=== PATIENT | female | born 1930 | race Caucasian/White ===

== ENCOUNTER → 2016-08-21 | Outpatient (CLI) | payer MEDICARE, BC ==
--- NOTE | 2016-08-21 15:04 | NM ---
EXAMINATION TYPE: NM bone scan whole body DATE OF EXAM: 08/21/2016 3:00 PM COMPARISON: NONE HISTORY: Lower back pain Delayed whole-body scanning was performed following the injection of 26.1 mCi Tc 99m MDP. Images acq uired 3 hours post injection. FINDINGS: Abnormal uptake involving the feet, knees, wrists, and shoulders typical of arthritic change. There is linear abnormal uptake at the approximate level of L2 and L3 and more focal uptake at the le justen of L4 on the right. IMPRESSION: Nonspecific uptake within the lumbar spine. Linear morphology suggests possible compression fractures . Recommend x-ray correlation.
== END | disposition home or self-care (01) ==
LOC: RADNMMAIN 11:13
PROVIDERS: ATTEND Physical Medicine & Rehabilitation
DX: M48.06 Spinal stenosis, lumbar region (principal); M43.16 Spondylolisthesis, lumbar region; M47.896 Other spondylosis, lumbar region; N28.9 Disorder of kidney and ureter, unspecified; Z87.11 Personal history of peptic ulcer disease
CPT/HCPCS: 78306; A9503

== ENCOUNTER 2016-10-05 06:48 | Day surgery (SDC) | payer MEDICARE, BC ==
[2016-10-05] MEDS ORDERED: MIDAZOLAM 2 MG/2 ML VIAL IV PRN (07:27)
[2016-10-05] MEDS ORDERED: DEXAMETHASONE SOD PHOSPHATE 10 MG/ML 1 ML VIAL IV ONE (07:27)
[2016-10-05] MEDS ORDERED: ONDANSETRON 4 MG/2 ML VIAL IVP ONE (07:27)
[2016-10-05] MEDS ORDERED: LIDOCAINE 1% 20 ML VIAL (10MG/ML) FOR IV START INTRADERMA PRN (07:27)
[2016-10-05] MEDS ORDERED: SCOPOLAMINE 1.5MG/72HR PATCH TRANSDERM ONE (07:27)
[2016-10-05] MEDS: LACTATED RINGERS 1,000 ML IV SCH (07:45)
[2016-10-05] MEDS ORDERED: LIDOCAINE 1% 20 ML VIAL (10MG/ML) FOR IV START INTRADERMA ONE (07:45)
[2016-10-05] MEDS ORDERED: PROPOFOL 10 MG/ML 20 ML VIAL IV ONE (08:55)
[2016-10-05] MEDS ORDERED: GLYCOPYRROLATE 0.2 MG/ML 2 ML VIAL ONE (08:55)
[2016-10-05] MEDS ORDERED: SUCCINYLCHOLINE CHLORIDE 100 MG/5 ML SYR IV ONE (08:55)
[2016-10-05] MEDS ORDERED: LIDOCAINE 1% INJ 10MG/ML (20 ML MDV) ONE (08:55)
[2016-10-05] MEDS ORDERED: MIDAZOLAM 2 MG/2 ML VIAL ONE (08:55)
[2016-10-05] MEDS ORDERED: PHENYLEPHRINE-0.9% NACL SYG 1 MG/10 ML SYRINGE ONE (08:55)
[2016-10-05] MEDS ORDERED: fentaNYL (PF) 50 MCG/ML 2 ML AMP ONE (08:55)
[2016-10-05] MEDS ORDERED: ceFAZolin 2 GM in SODIUM CHLORIDE 0.9% 100 ML IVPB ONE (08:56)
[2016-10-05] MEDS ORDERED: LIDOCAINE 0.5%-EPI 1:200,000 50 ML VIAL SQ ONE (09:25)
[2016-10-05] MEDS ORDERED: IOHEXOL 180 MG/ML 1 ML ML MISCELLANE ONE (09:26)
--- NOTE | 2016-10-05 10:19 | FL ---
EXAMINATION TYPE: FL guidance operating room DATE OF EXAM: 10/05/2016 10:15 AM HISTORY: Flouroscopy time 59 seconds of fluoroscopy provided. IMPRESSION: 1. Fluoroscopy time.
[2016-10-05] MEDS: HYDROmorphone 1 MG/ML 1 ML SYRINGE IVP PRN ×3 (10:20→12:09)
--- NOTE | 2016-10-05 10:20 | XR ---
EXAM TYPE: LUMBAR SPINE X RAY SERIES COMPARISON: NONE HISTORY: Kyphoplasty TECHNIQUE: 2 views are submitted. FINDINGS: Metallic instruments are seen overlying 2 vertebral segments. IMPRESSION: 1. Intraoperative localization.
[2016-10-05] MEDS ORDERED: KETOROLAC 30 MG/ML 1 ML VIAL IVP ONE (12:07)
[2016-10-05] MEDS ORDERED: HYDROmorphone 1 MG/ML 1 ML SYRINGE IVP PRN (12:25)
[2016-10-05] MEDS ORDERED: BENZOCAINE/MENTHOL LOZENG 1 EACH LOZENGE MUCOUS MEM PRN (12:25)
[2016-10-05] MEDS ORDERED: IBUPROFEN 600 MG TAB PO PRN (12:26)
[2016-10-05] MEDS ORDERED: TRIMETHOBENZAMIDE 100 MG/ML 2 ML VIAL IM PRN (12:26)
--- NOTE | 2016-10-05 12:36 | P.OP ---
Date of Procedure: 10/05/16 Preoperative Diagnosis: L2 and L3 compression fractures failed conservative treatment Postoperative Diagnosis: same Procedure(s) Performed: L2 and L3 vertebal body bipsies L2 and L3 kyphoplasty use of fouroscopic guidance Implants: bone cement Anesthesia: NIKITA Surgeon: Jonah Bell Estimated Blood Loss (ml): 10 Pathology: other (L2 and L3 vertebral body bx to pathology) Condition: stable Disposition: PACU
[2016-10-05 12:59] VITALS: BMI 26.6
[2016-10-05] MEDS: HYDROcodone/APAP 5-325MG 1 EACH TAB PO PRN ×4 (13:10→22:16)
[2016-10-05] MEDS: SODIUM CHLORIDE 0.9% 1,000 ML IV SCH (13:17)
[2016-10-05] MEDS: ceFAZolin 2 GM in SODIUM CHLORIDE 0.9% 100 ML IVPB SCH ×2 (16:48→23:27)
[2016-10-06] MEDS: SODIUM CHLORIDE 0.9% 1,000 ML IV SCH ×2 (05:08→05:16)
[2016-10-06] MEDS: HYDROcodone/APAP 5-325MG 1 EACH TAB PO PRN ×3 (05:13→14:24)
[2016-10-06] MEDS: LACTATED RINGERS 1,000 ML IV SCH (08:23)
[2016-10-06] MEDS: LISINOPRIL 20 MG TAB PO SCH (08:23)
--- NOTE | 2016-10-06 08:47 | P.PN ---
Progress Note - Text Orthopedic Spine Patient is a pleasant 85-year-old female who is seen at the bedside following kyphoplasty with biopsy L2 and L3 performed yesterday. Patient states she is unsure how well she is doing postsurgically. She continues to have some pain at the surgical site. She has been able to ambulating to the restroom. She continues to have muscle spasms of the lumbar spine. She states is when she continues to have some difficulty with bowel movements. She states she feels pressure has had difficulty with bowel movements. She states she is also been experiencing bright red blood in her stool since June 2016. She states she does have a history of hemorrhoids but has not recently had any workup. Currently does not complain of nausea, vomiting, fever, or chills. Patient states pain has been adequately controlled. Patient is eating and voiding freely without difficulty. Physical Exam Laminectomy/Discectomy: Status post surgical day number 1 Patient is awake, alert, and oriented 3 Vital signs stable Good chest excursion with deep inspiration and expiration Abdomen soft nontender Dorsiflexion, plantarflexion, and extensor hallucis longus positive sustained bilaterally No signs or symptoms of DVT; no calf pain Dressing is clean, dry, and intact; no erythema, purulence, or signs of infection Assessment: Kyphoplasty and biopsy L2 and L3 Low back pain Difficulty with bowel movements Blood in stool Plan: 1. Ambulate as tolerated; work with Physical Therapy 2. Continue Pain control with oral medications 3. Medical management can continue to manage patient for patient's other medical issues 4. We will plan for consultation with Dr. Fournier in GI for further evaluation for difficulty bowel movements and blood in her stool; she will plan to have have further evaluation today 5. We will continue to follow the patient closely; if she is able to increase mobility today and following evaluation by GI, we will tentatively plan for discharge home tomorrow, 10/07/2016 6. Patient can follow-up with Charanjit Jha PA-C or Dr. Nino Bell at [facility] in 2-3 weeks following discharge
[2016-10-06] MEDS ORDERED: HYDROCORTISONE SUPPOSITORY 25 MG SUPP RECTAL STA (09:23)
--- NOTE | 2016-10-06 09:37 | P.CONS ---
History of Present Illness - Reason for Consult Consult date: 10/06/16 rectal bleeding Requesting physician: Jonah Bell - History of Present Illness 85-year-old female with a history of iron deficiency anemia and internal hemorrhoids status post kyphoplasty for lumbar compression fractures. Consultation requested for intermittent rectal bleeding 3 months. She underwent EGD colonoscopy evaluation as part of iron deficiency anemia workup in September [address] Iniguez. Upper endoscopy revealed a 1 cm nonbleeding pyloric channel ulcer. Colonoscopy was within normal limits, internal hemorrhoid, with no evidence of colorectal neoplasia or colitis. She was advised PPI therapy and iron supplementation. For the past 3 months she's had a scant amount of red blood on toilet tissue when wiping which she thinks is hemorrhoidal in nature. Denies weight loss, gross hematochezia, melena, epigastric pain, or hematemesis. She stopped taking PPI and iron supplementation. Review of Systems Constitutional: Denies fever, chills, sweats, weight gain, or loss. HEENT: Negative for migraines, blurred vision or loss, earaches, drainage, tinnitus, oral mucosal lesions, dysphagia, or odynophagia. CARDIAC: Hypertension. Negative for chest pain, arrhythmias, or palpitation. RESPIRATORY: Negative for shortness of breath, hemoptysis, cough, or sputum production. GI: See HPI for pertinent findings. : Negative for hematuria, urgency, frequency, polyuria, or dysuria. GYNc: Denies possibility of . Negative vaginal discharge. MUSCULOSKELETAL: Chronic back pain lumbar compression fractures.. NEUROLOGIC: Negative for stroke or TIA. ENDOCRINE: Negative for thyroid problems. SKIN: Negative for rash or itching. PSYCHIATRIC: Depression. 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 History of Any Multi-Drug Resistant Organisms: None Reported Past Surgical History: Orthopedic Surgery, Tonsillectomy, Tubal Ligation Additional Past Surgical History / Comment(s): KNEE SCOPE; SURG FOR FX LEFT WRIST; HEMORRHOIDECTOMY Past Anesthesia/Blood Transfusion Reactions: No Reported Reaction, Blood Transfusion Reaction, Motion Sickness Past Psychological History: Depression Smoking Status: Former smoker Past Alcohol Use History: None Reported Past Drug Use History: None Reported Medications and Allergies Home Medications Medication Instructions Recorded Confirmed Type HYDROcodone/APAP 5-325MG [[place] 1 tab PO Q8HR 10/05/16 10/05/16 History 5-325] Lisinopril [Zestril] 20 mg PO DAILY 10/05/16 10/05/16 History Pill For Depression 10/05/16 History Allergies Allergy/AdvReac Type Severity Reaction Status Date / Time Penicillins Allergy Unknown Unknown Verified 10/04/16 19:33 Sulfa (Sulfonamide Allergy Unknown Unknown Verified 10/04/16 19:32 Antibiotics) sulfamethoxazole AdvReac Nausea Verified 10/05/16 07:55 [From Bactrim] trimethoprim [From Bactrim] AdvReac Nausea Verified 10/05/16 07:55 Physical Exam Vitals: Vital Signs Temp Pulse Pulse Pulse Resp BP BP 10/06/16 08:00 108 H 76 16 10/06/16 07:43 97.4 F L 108 H 16 134/68 10/05/16 22:25 98.7 F 95 18 116/68 10/05/16 17:43 76 16 110/61 10/05/16 16:00 12 10/05/16 15:16 12 10/05/16 15:13 97 F L 82 12 91/53 10/05/16 13:43 97 F L 103 H 12 138/81 10/05/16 13:19 10/05/16 13:15 97.7 F 98 18 144/75 10/05/16 12:15 92 18 124/59 10/05/16 11:45 95 16 126/61 10/05/16 11:30 85 18 125/58 10/05/16 11:18 94 16 130/61 10/05/16 11:03 94 18 128/61 10/05/16 10:45 91 18 130/58 10/05/16 10:30 97 18 145/67 10/05/16 10:16 102 H 18 152/69 10/05/16 10:00 98.2 F 111 H 16 165/74 Pulse Ox 10/06/16 08:00 10/06/16 07:43 92 L 10/05/16 22:25 94 L 10/05/16 17:43 97 10/05/16 16:00 10/05/16 15:16 10/05/16 15:13 97 10/05/16 13:43 98 10/05/16 13:19 92 L 10/05/16 13:15 88 L 10/05/16 12:15 99 10/05/16 11:45 100 10/05/16 11:30 100 10/05/16 11:18 100 10/05/16 11:03 99 10/05/16 10:45 98 10/05/16 10:30 95 10/05/16 10:16 98 10/05/16 10:00 100 Intake and Output 10/05/16 10/06/16 10/06/16 22:59 06:59 14:59 Intake Total 600 Balance 600 Intake: IV 600 Sodium Chloride 0.9% 1, 600 000 ml @ 75 mls/hr IV . [id number] Rx#:[id number] Other: Voiding Method Toilet Toilet Toilet # Voids 1 2 1 Weight 63.957 kg Patient Weight 10/07/16 06:59 Weight 63.957 kg General appearance: The patient is alert, oriented, in no acute distress. HET: Head is normocephalic and atraumatic. Pupils are equal and reactive. Oropharynx is clear without lesions. Neck: Supple without lymphadenopathy. Trachea midline. Heart: S1 S2. Regular rate and rhythm. Lungs: No crackles or wheezes are heard. Abdomen: Soft, nontender, nondistended with bowel sounds. No peritoneal signs. No palpable organomegaly or masses. Extremities: Normal skin color and turgor. No cyanosis, rash, ulceration, clubbing, or edema. Radial and pedal pulses are 2/4 bilaterally. Lumbar dressing was scant serosanguineous drainage. Neurological: No focal deficits. Strength and sensation are grossly intact. Rectal: Palpable internal hemorrhoid with scant pink tinged blood on finger. No palpable masses. Nonthrombosed external tag. Assessment and Plan (1) Rectal bleeding Narrative/Plan: Secondary to suspected internal hemorrhoid colonoscopy 2013 with findings of internal hemorrhoids Status: Acute (2) S/P kyphoplasty Status: Acute (3) Iron deficiency anemia Narrative/Plan: History of iron deficiency anemia Status: Chronic Plan: 1. Local hemorrhoidal care. Anusol-HC 25 mg suppository QHS; prescription provided. 2. We'll obtain CBC and iron studies. If evidence of iron deficiency will provide ferrous sulfate supplementation. 3. Stool softeners advised. 4. Endoscopic workup not planned at this time. Discharge per orthopedics possibly tomorrow. Return to GI office in 1-2 weeks for reevaluation. Thank you for this kind referral and the opportunity to participate in the care of your patient. This consultation was discussed with Dr. Lim. The impression and plan of care have been directed as dictated.
[2016-10-06 10:08] LABS: Basophils % (A) 1 %; CH 24.9; CHCM 29.7; Eosinophils # (A) 0.2 k/uL (0-0.7); Eosinophils % (A) 3 %; HCT 34.5 % (34.0-46.0); HDW 2.83; HGB 10.2 gm/dL (11.4-16.0); Hypochromasia Marked; Luc # (Auto) 0.16; Luc % (Auto) 3; Lymphocytes # (A) 1.8 k/uL (1.0-4.8); Lymphocytes % (A) 28 %; MCH 24.9 pg (25.0-35.0); MCHC 29.6 g/dL (31.0-37.0); MCV 84.1 fL (80.0-100.0); Monocytes # (A) 0.3 k/uL (0-1.0); Monocytes % (A) 5 %; Neutrophils # (A) 3.9 k/uL (1.3-7.7); Neutrophils % (A) 62 %; RDW 14.9 % (11.5-15.5); WBC 6.4 k/uL (3.8-10.6); WBC (Perox) 6.64
[2016-10-06 10:56] LABS: % Iron Saturation 4.8 % (20-50)
[2016-10-06] MEDS: DIAZEPAM 5 MG TAB PO PRN ×3 (10:56→22:17)
[2016-10-06] MEDS ORDERED: FERROUS SULFATE 325 MG TAB PO STA (12:54)
[2016-10-06] MEDS ORDERED: HYDROCORTISONE SUPPOSITORY 25 MG SUPP RECTAL SCH (21:00)
--- NOTE | 2016-10-06 22:11 | CONS ---
DATE OF CONSULTATION: 10/06/2016 REASON FOR CONSULTATION: Medical management requested by Dr. Bell. CONSULTATION: This is a pleasant 85-year-old patient of Dr. Patricia. Patient underwent surgery by Dr. Bell yesterday. She is known to have L2-L3 compression fracture followed by L2-L3 kyphoplasty. Patient has a drain in place. Patient did tolerate some diet. No nausea or vomiting. Patient pretty much has been in bed. The patient's chronic stable medical conditions include GERD, hypertension, osteoarthritis, depression, urinary urge incontinence. Prior to surgery patient was getting ( ) pain with spasms in the back and the buttock area. REVIEW OF SYSTEMS: CONSTITUTIONAL: Tired. HEENT: None. RESPIRATORY: None. CARDIOVASCULAR: None. GASTROINTESTINAL: None. GENITOURINARY: Urge incontinence. DERMATOLOGICAL: None. HEMATOLOGICAL: None. LYMPHATIC: None. PSYCHIATRY: History of depression. NEUROLOGICAL: None. MUSCULOSKELETAL: As above. PAST MEDICAL HISTORY: 1. GERD. 2. Hypertension. 3. Osteoarthritis. 4. L2-L3 compression fracture. 5. Depression. 6. Urinary urge incontinence. PAST SURGICAL HISTORY: 1. Tonsillectomy. 2. Tubal ligation. 3. Surgery on the left wrist. 4. Hemorrhoidectomy. SOCIAL HISTORY: Patient lives by herself. Did smoke in the past. No alcohol. FAMILY HISTORY: Reviewed; noncontributory to presentation. HOME MEDICATIONS: 1. Prozac 20 mg a day. 2. Red Bud 5 one tablet q.8. 3. Zestril 20 mg a day. 4. Anusol-HC 25 mg at bedtime. ALLERGIES: 1. PENICILLIN. 2. SULFA. 3. BACTRIM. On examination, temperature 97.4, pulse 98, respiration 16, blood pressure 124/65, pulse ox 94%. GENERAL APPEARANCE: Average build. Lying in bed. Tired-appearing. EYES: Pupils equal. Conjunctivae normal. HEENT: Oral cavity normal. NECK: JVD not raised. Mass not palpable. RESPIRATORY: Effort normal. LUNGS: Fair air entry. CARDIOVASCULAR: First and second sounds normal. No edema. ABDOMEN: Soft, nontender. Liver and spleen not palpable. LYMPHATIC: No lymph node palpable in neck or axillae. PSYCHIATRY: Alert and oriented ( ) MUSCULOSKELETAL: Patient has a drain in the lower back. NEUROLOGICAL: Patient is able to lift both the lower extremities. INVESTIGATIONS: White count 6.4. Hemoglobin 10.2. ASSESSMENT: 1. L2-L3 kyphoplasty for L2-L3 compression fracture. 2. Gastroesophageal reflux disease. 3. Essential hypertension. 4. Primary osteoarthritis in multiple joints. 5. Depression not otherwise specified. 6. Chronic urinary urge incontinence. PLAN: I told the nurse to check patient's home medications once it is clarified they can be resumed. Blood pressure medications will be resumed provided the blood pressure is above 130. Pain control is in place. Venodyne boots are in place. Care was discussed in detail with the patient. Thank you, Dr. Bell.
[2016-10-06] MEDS: FLUoxetine HCL 20 MG CAP PO SCH (22:17)
[2016-10-06 22:42] VITALS: RESP 18
[2016-10-07] MEDS: HYDROcodone/APAP 5-325MG 1 EACH TAB PO PRN ×2 (01:47→08:14)
[2016-10-07] MEDS: SODIUM CHLORIDE 0.9% 1,000 ML IV SCH (06:24)
[2016-10-07] MEDS: FLUoxetine HCL 20 MG CAP PO SCH (08:15)
[2016-10-07] MEDS: LISINOPRIL 20 MG TAB PO SCH (08:15)
[2016-10-07 08:31] VITALS: BP 128/61; PULSE 91; TEMP 98.2
== END 2016-10-07 10:35 | disposition home or self-care (01) ==
LOC: OR 06:48 → 5MS5E 10:00 → OR 10-07 10:35
PROVIDERS: ATTEND Orthopaedic Surgery Orthopaedic Surgery of the Spine
DX: S32.020A Wedge compression fracture of second lumbar vertebra, initial encounter for closed fracture (principal); S32.030A Wedge compression fracture of third lumbar vertebra, initial encounter for closed fracture; M47.817 Spondylosis without myelopathy or radiculopathy, lumbosacral region; M51.36 Other intervertebral disc degeneration, lumbar region; M51.26 Other intervertebral disc displacement, lumbar region; M43.17 Spondylolisthesis, lumbosacral region; N39.41 Urge incontinence; M19.91 Primary osteoarthritis, unspecified site; M19.90 Unspecified osteoarthritis, unspecified site; K21.9 Gastro-esophageal reflux disease without esophagitis; F32.9 Major depressive disorder, single episode, unspecified; I10 Essential (primary) hypertension; K64.8 Other hemorrhoids; D50.9 Iron deficiency anemia, unspecified; M62.830 Muscle spasm of back; Z79.891 Long term (current) use of opiate analgesic; Z79.899 Other long term (current) drug therapy; Z88.0 Allergy status to penicillin; Z88.2 Allergy status to sulfonamides; Z87.891 Personal history of nicotine dependence
CPT/HCPCS: 22515; 22514; 97161; 82728; 83540; 83550; 85025; 88307; 88311; 72100; J2250; Q9965; J0690; J2405; J2001; J3010; J1170; J2370; J0330; J2704

== ENCOUNTER → 2017-11-14 | Outpatient (CLI) | payer MEDICARE, BC ==
[~2017-11-14] MED LIST: DENOSUMAB 60 MG/ML 1 ML SYRINGE SQ NR
[2017-11-14 13:46] VITALS: BP 159/94; PULSE 85; RESP 16; TEMP 98.2
== END | disposition home or self-care (01) ==
LOC: PROCWHC3 13:32
PROVIDERS: ATTEND Family Medicine
DX: M81.0 Age-related osteoporosis without current pathological fracture (principal)
CPT/HCPCS: 96372

== ENCOUNTER → 2018-11-14 | Outpatient (CLI) | payer MEDICARE, BC ==
[2018-11-14 16:53] LABS: Basophils % (A) 0 %; Eosinophils # (A) 0.2 k/uL (0-0.7); Eosinophils % (A) 2 %; HCT 29.2 % (34.0-46.0); HGB 8.8 gm/dL (11.4-16.0); Hypochromasia Marked; Lymphocytes # (A) 2.2 k/uL (1.0-4.8); Lymphocytes % (A) 22 %; MCH 23.7 pg (25.0-35.0); MCHC 30.3 g/dL (31.0-37.0); MCV 78.3 fL (80.0-100.0); Mean Platelet Volume 7.6; Monocytes # (A) 0.6 k/uL (0-1.0); Monocytes % (A) 6 %; Neutrophils # (A) 6.7 k/uL (1.3-7.7); Neutrophils % (A) 67 %; Platelet Count 362 k/uL (150-450); RBC 3.73 m/uL (3.80-5.40); RDW 15.1 % (11.5-15.5)
[2018-11-15 00:57] LABS: Iron Saturation 2.89 (12.00-45.00)
== END ==
LOC: LABWHC1 15:57
PROVIDERS: ATTEND Family Medicine
DX: D50.9 Iron deficiency anemia, unspecified (principal)
CPT/HCPCS: 36415; 82728; 83540; 83550; 85025

== ENCOUNTER 2018-11-19 14:34 | Observation (INO) | payer MEDICARE, BC ==
--- NOTE | 2018-11-19 15:33 | ED ---
General Adult HPI - General Chief complaint: Recheck/Abnormal Lab/Rx Stated complaint: Low hemoglobin Time Seen by Provider: 11/19/18 15:00 Source: patient Mode of arrival: wheelchair Limitations: no limitations - History of Present Illness Initial comments: Dictation was produced using [employer] dictation software. please excuse any gram matical, word or spelling errors. Chief Complaint: 88-year-old female with past medical history of chronic anemia presents with abnormal outpatient lab. History of Present Illness: His 88-year-old female with multiple comorbidities. She was told to come to the emergency department yesterday after she had an abnormal outpatient laboratory result. She was told that she had a low hemog lobin. His labs were drawn 4 days ago by her primary care physician and office manager receptionist. Patient states that she has been having difficulty with anemia for past several months. She takes [id number] iron supplementation. She has no other complaints at this time. The ROS documented in this emergency department record has been reviewed and confirmed by me. Those systems with pertinent positive or negative responses have been documented in the HPI. All other systems are other negative and/or noncontributory. PHYSICAL EXAM: General Impression: Alert and oriented x3, not in acute distress HEENT: Normocephalic atraumatic, extra-ocular movements intact, pupils equal and reactive to light bilaterally, mucous membranes moist. Cardiovascular: Heart regular rate and rhythm, S1&S2 audible, no murmurs, rubs or gallops Chest: Lungs clear to auscultation bilaterally, no rhonchi, no wheeze, no rales Abdomen: Bowel sounds present, abdomen soft, non-tender, non-distended, no organomegaly Musculoskeletal: Pulses present and equal in all extremities, no peripheral edema Motor: no focal deficits noted Neurological: CN II-XII grossly intact, no focal motor or sensory deficits noted Skin: Intact with no visualized rashes Psych: Normal affect and mood ED course: 88yo female with chief complaint of anemia. All signs upon arrival are within acceptable limits.Laboratory evaluation obtained. Patient has hemoglobin of 8.4. Patient is macrocytic hypochromic. Coag panel unremarkable. Metabolic panel is unremarkable. Patient states that her symptoms are severe. She does however have stable hemodynamics. Risk and benefits were discussed for transfusion of packed red blood cells. Patient states that she would like a transfusion. Discussed patient case Dr. mckeon. Patient to be admitted. We will place hematology consultation and order iron studies. EKG interpretation: Ventricular rate 83, normal sinus rhythm, RI interval 120, care is 82, QTc 432. No RI prolongation, no QTC prolongation, no ST or T-wave changes noted. . Overall, this EKG is unremarkable - Related Data Home Medications Medication Instructions Recorded Confirmed Lisinopril [Zestril] 20 mg PO HS 10/05/16 11/19/18 Acetaminophen Tab [Tylenol Tab] 650 mg PO Q6H PRN 11/19/18 11/19/18 Ascorbic Acid [Vitamin C] 1,000 mg PO HS 11/19/18 11/19/18 Atorvastatin [Lipitor] 20 mg PO HS 11/19/18 11/19/18 Escitalopram [Lexapro] 10 mg PO HS 11/19/18 11/19/18 Multivitamins, Thera [Multivitamin 1 tab PO HS 11/19/18 11/19/18 (formulary)] Allergies Allergy/AdvReac Type Severity Reaction Status Date / Time Penicillins Allergy Unknown Unknown Verified 11/19/18 14:57 Sulfa (Sulfonamide Allergy Unknown Unknown Verified 11/19/18 14:57 Antibiotics) sulfamethoxazole AdvReac Nausea Verified 11/19/18 14:57 [From Bactrim] trimethoprim [From Bactrim] AdvReac Nausea Verified 11/19/18 14:57 Review of Systems ROS Statement: Those systems with pertinent positive or pertinent negative responses have been documented in the HPI. ROS Other: All systems not noted in ROS Statement are negative. 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 History of Any Multi-Drug Resistant Organisms: None Reported Past Surgical History: Orthopedic Surgery, Tonsillectomy, Tubal Ligation Additional Past Surgical History / Comment(s): KNEE SCOPE; SURG FOR FX LEFT WRIST; HEMORRHOIDECTOMY Past Anesthesia/Blood Transfusion Reactions: No Reported Reaction, Blood Transfusion Reaction, Motion Sickness Past Psychological History: Depression Smoking Status: Former smoker Past Alcohol Use History: None Reported Past Drug Use History: None Reported General Exam Limitations: no limitations Course Vital Signs 11/19/18 11/19/18 14:37 15:31 Temperature 98.1 F Pulse Rate 90 83 Respiratory 18 16 Rate Blood Pressure 121/81 137/102 O2 Sat by Pulse 96 94 L Oximetry Medical Decision Making - Lab Data Result diagrams: 11/19/18 14:55 11/19/18 14:55 Lab Results 11/19/18 11/19/18 11/19/18 Range/Units 14:55 14:55 14:55 WBC 8.3 (3.8-10.6) k/uL RBC 3.58 L (3.80-5.40) m/uL Hgb 8.4 L (11.4-16.0) gm/dL Hct 27.5 L (34.0-46.0) % MCV 76.8 L (80.0-100.0) fL MCH 23.5 L (25.0-35.0) pg MCHC 30.6 L (31.0-37.0) g/dL RDW 15.6 H (11.5-15.5) % Plt Count 337 (150-450) k/uL Neutrophils % 65 % Lymphocytes % 24 % Monocytes % 6 % Eosinophils % 2 % Basophils % 0 % Neutrophils # 5.4 (1.3-7.7) k/uL Lymphocytes # 2.0 (1.0-4.8) k/uL Monocytes # 0.5 (0-1.0) k/uL Eosinophils # 0.1 (0-0.7) k/uL Basophils # 0.0 (0-0.2) k/uL Hypochromasia Marked Microcytosis Slight PT (9.0-12.0) sec INR (<1.2) Sodium 134 L (137-145) mmol/L Potassium 4.4 (3.5-5.1) mmol/L Chloride 101 (98-107) mmol/L Carbon Dioxide 24 (22-30) mmol/L Anion Gap 9 mmol/L BUN 19 H (7-17) mg/dL Creatinine 0.61 (0.52-1.04) mg/dL Est GFR (CKD-EPI)AfAm >90 (>60 ml/min/1.73 sqM) Est GFR (CKD-EPI)NonAf 82 (>60 ml/min/1.73 sqM) Glucose 86 (74-99) mg/dL Plasma Lactic Acid [place] (0.7-2.0) mmol/L Calcium 9.5 (8.4-10.2) mg/dL Magnesium 1.8 (1.6-2.3) mg/dL Blood Type A Positive Blood Type Recheck CABO Indicated Antibody Screen NEGATIVE Spec Expiration Date 11/22/2018235411/19/18 11/19/18 Range/Units 14:55 14:55 WBC (3.8-10.6) k/uL RBC (3.80-5.40) m/uL Hgb (11.4-16.0) gm/dL Hct (34.0-46.0) % MCV (80.0-100.0) fL MCH (25.0-35.0) pg MCHC (31.0-37.0) g/dL RDW (11.5-15.5) % Plt Count (150-450) k/uL Neutrophils % % Lymphocytes % % Monocytes % % Eosinophils % % Basophils % % Neutrophils # (1.3-7.7) k/uL Lymphocytes # (1.0-4.8) k/uL Monocytes # (0-1.0) k/uL Eosinophils # (0-0.7) k/uL Basophils # (0-0.2) k/uL Hypochromasia Microcytosis PT 10.1 (9.0-12.0) sec INR 0.9 (<1.2) Sodium (137-145) mmol/L Potassium (3.5-5.1) mmol/L Chloride (98-107) mmol/L Carbon Dioxide (22-30) mmol/L Anion Gap mmol/L BUN (7-17) mg/dL Creatinine (0.52-1.04) mg/dL Est GFR (CKD-EPI)AfAm (>60 ml/min/1.73 sqM) Est GFR (CKD-EPI)NonAf (>60 ml/min/1.73 sqM) Glucose (74-99) mg/dL Plasma Lactic Acid [place] 0.8 (0.7-2.0) mmol/L Calcium (8.4-10.2) mg/dL Magnesium (1.6-2.3) mg/dL Blood Type Blood Type Recheck Antibody Screen Spec Expiration Date Disposition Clinical Impression: Anemia Disposition: ADMITTED IP TO THIS HOSP Condition: Fair Referrals: Joao Ptaricia MD [Primary Care Provider] - 1-2 days Decision Time: 16:15
[2018-11-19 15:38] LABS: Basophils % (A) 0 %; Eosinophils # (A) 0.1 k/uL (0-0.7); Eosinophils % (A) 2 %; HCT 27.5 % (34.0-46.0); HGB 8.4 gm/dL (11.4-16.0); Hypochromasia Marked; Lymphocytes % (A) 24 %; MCH 23.5 pg (25.0-35.0); MCHC 30.6 g/dL (31.0-37.0); MCV 76.8 fL (80.0-100.0); Mean Platelet Volume 7.3; Microcytosis Slight; Monocytes # (A) 0.5 k/uL (0-1.0); Monocytes % (A) 6 %; Neutrophils # (A) 5.4 k/uL (1.3-7.7); Neutrophils % (A) 65 %; Platelet Count 337 k/uL (150-450); RBC 3.58 m/uL (3.80-5.40); RDW 15.6 % (11.5-15.5); WBC 8.3 k/uL (3.8-10.6)
[2018-11-19 15:42] LABS: Anion Gap 9 mmol/L; Blood Urea Nitrogen 19 mg/dL (7-17); Calcium 9.5 mg/dL (8.4-10.2); Carbon Dioxide 24 mmol/L (22-30); Chloride 101 mmol/L (98-107); Glucose 86 mg/dL (74-99); Magnesium 1.8 mg/dL (1.6-2.3); Potassium 4.4 mmol/L (3.5-5.1); Sodium 134 mmol/L (137-145)
[2018-11-19 15:44] LABS: INR 0.9 (<1.2); Prothrombin Time 10.1 sec (9.0-12.0)
[2018-11-19] MEDS ORDERED: NALOXONE 0.4 MG/ML 1 ML VIAL IV PRN (16:15)
[2018-11-19] MEDS: ACETAMINOPHEN TAB 325 MG TAB PO PRN ×2 (17:25→23:06)
[2018-11-19 17:58] VITALS: RESP 18
[2018-11-19 19:34] VITALS: BMI 26.4
[2018-11-19] MEDS ORDERED: ATORVASTATIN 20 MG TAB PO SCH (21:00)
[2018-11-19] MEDS ORDERED: ESCITALOPRAM 10 MG TAB PO SCH (21:00)
[2018-11-19] MEDS ORDERED: ASCORBIC ACID 500 MG TAB PO SCH (21:00)
[2018-11-19] MEDS ORDERED: MULTIVITAMINS, THERA 1 EACH TAB PO SCH (21:00)
[2018-11-19] MEDS ORDERED: LISINOPRIL 20 MG TAB PO SCH (21:00)
[2018-11-20 02:01] LABS: Iron Saturation 2.02 (12.00-45.00)
[2018-11-20 07:49] LABS: Basophils % (A) 0 %; Eosinophils # (A) 0.2 k/uL (0-0.7); Eosinophils % (A) 4 %; HCT 30.8 % (34.0-46.0); HGB 9.7 gm/dL (11.4-16.0); Hypochromasia Marked; Lymphocytes # (A) 2.3 k/uL (1.0-4.8); Lymphocytes % (A) 35 %; MCH 24.6 pg (25.0-35.0); MCHC 31.6 g/dL (31.0-37.0); Mean Platelet Volume 6.7; Monocytes # (A) 0.3 k/uL (0-1.0); Monocytes % (A) 5 %; Neutrophils # (A) 3.5 k/uL (1.3-7.7); Neutrophils % (A) 53 %; Platelet Count 340 k/uL (150-450); Poikilocytosis Slight; RBC 3.95 m/uL (3.80-5.40); RDW 15.7 % (11.5-15.5); WBC 6.5 k/uL (3.8-10.6)
[2018-11-20 07:53] LABS: Reticulocyte % 1.6 % (0.5-2.0)
[2018-11-20 08:09] LABS: ALT 30 U/L (9-52); AST 35 U/L (14-36); Albumin 3.7 g/dL (3.5-5.0); Alkaline Phosphatase 58 U/L (38-126); Anion Gap 5 mmol/L; Blood Urea Nitrogen 15 mg/dL (7-17); Calcium 9.6 mg/dL (8.4-10.2); Carbon Dioxide 29 mmol/L (22-30); Chloride 104 mmol/L (98-107); Glucose 86 mg/dL (74-99); Potassium 4.5 mmol/L (3.5-5.1); Sodium 138 mmol/L (137-145); Total Bilirubin 0.5 mg/dL (0.2-1.3)
[2018-11-20] MEDS: ACETAMINOPHEN TAB 325 MG TAB PO PRN ×3 (08:24→17:20)
[2018-11-20 11:41] LABS: Folate, Serum 17.2 ng/mL; Protein, Total 5.5 g/dL (6.2-8.2)
[2018-11-20 11:46] VITALS: BP 146/79; PULSE 92; TEMP 98
[2018-11-20 13:26] LABS: Immunoglobulin M 40.9 mg/dL (40.0-280.0)
--- NOTE | 2018-11-20 22:35 | P.CONS ---
History of Present Illness - Reason for Consult Consult date: 11/20/18 Anemia - History of Present Illness the patient is an 88-year-old white female, Multiple medical issues. The patient has a long-standing history of anemia, , present since at least 2013, according to the EMR. HEENT had an EGD and colonoscopy at that time which were negative. She had low hemoglobin in the 9-10 range, with low iron stores also 2017. She states that she was sent in as outpatient labs had shown low hemoglobin, which was 8.4 on admission. This however was not substantially different from baseline which is usually in the 9-10 range. Labs showed evidence of iron deficiency, with ferritin low normal, and iron saturation low. The patient has had a history of small amounts of rectal bleeding off and on, which however appear to be due to hemorrhoids. She states that she had a GI workup last month which was again negative.. Apparently this was at an outside institution, as I could not find records of that in this EMR. The patient states that she has done oral iron once a day, chronically. However it appears that she may not have been taking it consistently, and she states that it constipates her. Review of Systems Constitutional: Reports fatigue Eyes: denies blurred vision, denies pain Ears: deny: decreased hearing, ear discharge, earache, tinnitus Ears, nose, mouth and throat: Denies headache, Denies sore throat Cardiovascular: Reports dyspnea on exertion, Reports palpitations Respiratory: Reports dyspnea Gastrointestinal: Reports hematochezia Genitourinary: Denies dysuria, Denies hematuria Menstruation: Reports postmenopausal Musculoskeletal: Denies myalgias Integumentary: Denies pruritus, Denies rash Neurological: Reports memory loss (mild), Reports weakness, Denies numbness Psychiatric: Reports memory loss Endocrine: Reports fatigue, Denies weight change Hematologic/Lymphatic: Reports as per HPI 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 History of Any Multi-Drug Resistant Organisms: None Reported Past Surgical History: Orthopedic Surgery, Tonsillectomy, Tubal Ligation Additional Past Surgical History / Comment(s): KNEE SCOPE; SURG FOR FX LEFT WRIST; HEMORRHOIDECTOMY Past Anesthesia/Blood Transfusion Reactions: No Reported Reaction, Blood Transfusion Reaction, Motion Sickness Past Psychological History: Depression Smoking Status: Never smoker Past Alcohol Use History: None Reported Past Drug Use History: None Reported Medications and Allergies Home Medications Medication Instructions Recorded Confirmed Type Lisinopril [Zestril] 20 mg PO HS 10/05/16 11/19/18 History Acetaminophen Tab [Tylenol] 650 mg PO Q6H PRN 11/19/18 11/19/18 History Ascorbic Acid [Vitamin C] 1,000 mg PO HS 11/19/18 11/19/18 History Atorvastatin [Lipitor] 20 mg PO HS 11/19/18 11/19/18 History Escitalopram [Lexapro] 10 mg PO HS 11/19/18 11/19/18 History Multivitamins, Thera [Multivitamin 1 tab PO HS 11/19/18 11/19/18 History (formulary)] Allergies Allergy/AdvReac Type Severity Reaction Status Date / Time Penicillins Allergy Unknown Unknown Verified 11/19/18 14:57 Sulfa (Sulfonamide Allergy Unknown Unknown Verified 11/19/18 14:57 Antibiotics) sulfamethoxazole AdvReac Nausea Verified 11/19/18 14:57 [From Bactrim] trimethoprim [From Bactrim] AdvReac Nausea Verified 11/19/18 14:57 Physical Exam Vitals: Vital Signs Temp Pulse Resp BP Pulse Ox 11/20/18 11:32 98.0 F 92 18 146/79 95 11/20/18 05:00 98.6 F 87 18 151/77 94 L 11/19/18 23:00 81 18 Intake and Output 11/20/18 11/20/18 11/20/18 06:59 14:59 22:59 Intake Total 420 Balance 420 Intake: Oral 420 Other: # Voids 3 3 Results CBC & Chem 7: 11/20/18 07:24 11/20/18 07:24 Labs: Abnormal Lab Results - Last 24 Hours (Table) 11/19/18 11/20/18 11/20/18 Range/Units 16:17 07:24 07:24 Hgb 9.7 L (11.4-16.0) gm/dL Hct 30.8 L (34.0-46.0) % MCV 78.0 L (80.0-100.0) fL MCH 24.6 L (25.0-35.0) pg RDW 15.7 H (11.5-15.5) % Iron 8 L (50-170) ug/dL Iron Saturation 2.02 L (12.00-45.00) Total Protein (6.3-8.2) g/dL Total Protein (PEP) 5.5 L (6.2-8.2) g/dL IgG (700.0-1600.0) mg/dL Free [place] LC, Quant 3.37 H (0.33-1.94) mg/dL 11/20/18 11/20/18 Range/Units 07:24 07:24 Hgb (11.4-16.0) gm/dL Hct (34.0-46.0) % MCV (80.0-100.0) fL MCH (25.0-35.0) pg RDW (11.5-15.5) % Iron (50-170) ug/dL Iron Saturation (12.00-45.00) Total Protein 6.0 L (6.3-8.2) g/dL Total Protein (PEP) (6.2-8.2) g/dL IgG 564.0 L (700.0-1600.0) mg/dL Free [place] LC, Quant (0.33-1.94) mg/dL Assessment and Plan (1) Iron deficiency anemia Narrative/Plan: The patient has a long-standing history of anemia which appears to be due to iron deficiency. Labs in the EMR and reviewed showing chronically low ferritin (in the low-normal range) and diminished saturation in the 10-20% range. GI workup has been negative. She has been placed on oral iron, but likely has not been taking it consistently. Is not on any anticoagulation or antiplatelet agents according to her. 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 Pathophysiology was discussed with her. She was advised that the mainstay of treatment would be iron supplementation. Her situation at be reasonable to treat her with IV iron, with ongoing monitoring and supplementation as needed. Be set up for infusion as an outpatient, as she is otherwise stable for discharge from my standpoint. Office will contact her to set up for the same Status: Chronic Code(s): D50.9 - IRON DEFICIENCY ANEMIA, UNSPECIFIED SNOMED Code(s): 79115303 (2) Rectal bleeding Narrative/Plan: This is also ongoing, and overall minor clinically. She is known to have hemorrhoids on lower endoscopy. this is unlikely to be the source of her chronic iron deficiency Status: Acute Code(s): K62.5 - HEMORRHAGE OF ANUS AND RECTUM SNOMED Code(s): 43988325
--- NOTE | 2018-11-20 23:22 | P.HPIM ---
History of Present Illness H&P Date: 11/20/18 Chief Complaint: tired History of presenting complaint: As very pleasant [address] Patricia. Chronic stable medical conditions include hypertension, hyperlipidemia, osteoporosis, depression. Patient had a lap was done by her family doctor is following a low hemoglobin. Patient hasn't really been feeling very tired and rundown lethargic. Patient initial hemoglobi n was 8.4. Because patient was very symptomatic and she was given a unit of blood. This morning the hemoglobin was 9.7. Patient denies any black stools. Patient had anemia for a while. Patient does feel better after getting unit of blood. No chest pain or shortness of breath. Following the same. Review of systems: GEN.: Tired EYES: None HEENT: None NECK: None RESPIRATORY: None CARDIOVASCULAR: None GASTROINTESTINAL: None GENITOURINARY: None MUSCULOSKELETAL: Pain in the joints LYMPHATICS: None HEMATOLOGICAL: None PSYCHIATRY: None NEUROLOGICAL: None Social history: Does not smoke or drink alcohol. Family history: Reviewed, noncontributory to presentation Physical examination: VITAL SIGNS: 98.1, 90, 18, 121/81, 96% room air GENERAL: Average built, sitting up, comfortable. EYES: Pupils equal. Conjunctiva palel. HEENT: External appearance of nose and ears normal, oral cavity grossly normal. NECK: JVD not raised; masses not palpable. HEART: First and second heart sounds are normal; no edema. LUNGS: Respiratory rate normal; clear to auscultation. ABDOMEN: Soft, nontender, liver spleen not palpable, no masses palpable. LYMPHATICS: No lymph nodes palpable in the axilla and neck. PSYCH: Alert and oriented x3; mood and affect normal. NEUROLOGICAL: Cranial nerves grossly intact; no facial asymmetry, power and sensation grossly intact. Investigations: Done in the clinical context Hemoglobin 8.4 MCV 76.8 platelets 337 potassium 4.4 Iron 8 TIBC 397 ferritin 19.8 iron saturation 2.02 Assessment: -Severe symptomatic iron deficiency anemia -Hyperlipidemia -Essential hypertension -Primary osteoarthritis -Depression otherwise specified Plan: Patient is to see unit of blood. Patient is very keen to go home. Further workup can be done as an outpatient. Care was discussed with the patient. 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 History of Any Multi-Drug Resistant Organisms: None Reported Past Surgical History: Orthopedic Surgery, Tonsillectomy, Tubal Ligation Additional Past Surgical History / Comment(s): KNEE SCOPE; SURG FOR FX LEFT WRIST; HEMORRHOIDECTOMY Past Anesthesia/Blood Transfusion Reactions: No Reported Reaction, Blood Transfusion Reaction, Motion Sickness Past Psychological History: Depression Smoking Status: Never smoker Past Alcohol Use History: None Reported Past Drug Use History: None Reported Medications and Allergies Home Medications Medication Instructions Recorded Confirmed Type Lisinopril [Zestril] 20 mg PO HS 10/05/16 11/19/18 History Acetaminophen Tab [Tylenol] 650 mg PO Q6H PRN 11/19/18 11/19/18 History Ascorbic Acid [Vitamin C] 1,000 mg PO HS 11/19/18 11/19/18 History Atorvastatin [Lipitor] 20 mg PO HS 11/19/18 11/19/18 History Escitalopram [Lexapro] 10 mg PO HS 11/19/18 11/19/18 History Multivitamins, Thera [Multivitamin 1 tab PO HS 11/19/18 11/19/18 History (formulary)] Allergies Allergy/AdvReac Type Severity Reaction Status Date / Time Penicillins Allergy Unknown Unknown Verified 11/19/18 14:57 Sulfa (Sulfonamide Allergy Unknown Unknown Verified 11/19/18 14:57 Antibiotics) sulfamethoxazole AdvReac Nausea Verified 11/19/18 14:57 [From Bactrim] trimethoprim [From Bactrim] AdvReac Nausea Verified 11/19/18 14:57 Physical Exam Vitals: Vital Signs Temp Pulse Pulse Resp BP BP Pulse Ox 11/20/18 11:32 98.0 F 92 18 146/79 95 11/20/18 05:00 98.6 F 87 18 151/77 94 L 11/19/18 23:00 81 18 11/19/18 20:39 97.6 F 79 18 136/74 97 11/19/18 20:26 97.6 F 79 18 136/74 97 11/19/18 18:19 97.6 F 81 18 172/93 94 L 11/19/18 17:57 98.4 F 80 18 151/81 96 11/19/18 17:29 98.4 F 82 16 145/89 96 11/19/18 17:19 98.9 F 86 18 145/89 11/19/18 17:13 98.9 F 91 16 132/75 93 L Intake and Output 11/20/18 11/20/18 11/20/18 06:59 14:59 22:59 Intake Total 420 Balance 420 Intake: Oral 420 Other: # Voids 3 1 Results CBC & Chem 7: 11/20/18 07:24 11/20/18 07:24 Labs: Abnormal Lab Results - Last 24 Hours (Table) 11/19/18 11/19/18 11/19/18 Range/Units 14:55 14:55 14:55 RBC 3.58 L (3.80-5.40) m/uL Hgb 8.4 L (11.4-16.0) gm/dL Hct 27.5 L (34.0-46.0) % MCV 76.8 L (80.0-100.0) fL MCH 23.5 L (25.0-35.0) pg MCHC 30.6 L (31.0-37.0) g/dL RDW 15.6 H (11.5-15.5) % Sodium 134 L (137-145) mmol/L BUN 19 H (7-17) mg/dL Iron (50-170) ug/dL Iron Saturation (12.00-45.00) Total Protein (6.3-8.2) g/dL Total Protein (PEP) (6.2-8.2) g/dL IgG (700.0-1600.0) mg/dL Free [place] LC, Quant (0.33-1.94) mg/dL Crossmatch See Detail 11/19/18 11/20/18 11/20/18 Range/Units 16:17 07:24 07:24 RBC (3.80-5.40) m/uL Hgb 9.7 L (11.4-16.0) gm/dL Hct 30.8 L (34.0-46.0) % MCV 78.0 L (80.0-100.0) fL MCH 24.6 L (25.0-35.0) pg MCHC (31.0-37.0) g/dL RDW 15.7 H (11.5-15.5) % Sodium (137-145) mmol/L BUN (7-17) mg/dL Iron 8 L (50-170) ug/dL Iron Saturation 2.02 L (12.00-45.00) Total Protein (6.3-8.2) g/dL Total Protein (PEP) 5.5 L (6.2-8.2) g/dL IgG (700.0-1600.0) mg/dL Free [place] LC, Quant 3.37 H (0.33-1.94) mg/dL Crossmatch 11/20/18 11/20/18 Range/Units 07:24 07:24 RBC (3.80-5.40) m/uL Hgb (11.4-16.0) gm/dL Hct (34.0-46.0) % MCV (80.0-100.0) fL MCH (25.0-35.0) pg MCHC (31.0-37.0) g/dL RDW (11.5-15.5) % Sodium (137-145) mmol/L BUN (7-17) mg/dL Iron (50-170) ug/dL Iron Saturation (12.00-45.00) Total Protein 6.0 L (6.3-8.2) g/dL Total Protein (PEP) (6.2-8.2) g/dL IgG 564.0 L (700.0-1600.0) mg/dL Free [place] LC, Quant (0.33-1.94) mg/dL Crossmatch Thrombosis Risk Factor Assmnt - Choose All That Apply Any of the Below Risk Factors Present?: No Other Risk Factors: Yes Each Risk Factor Represents 2 Points: Arthroscopic surgery Each Risk Factor Represents 3 Points: Age 75 years or older Other congenital or acquired thrombophilia - If yes, enter type in comment: No Thrombosis Risk Factor Assessment Total Risk Factor Score: 5 Thrombosis Risk Factor Assessment Level: High Risk
--- NOTE | 2018-11-21 00:41 | DS ---
DISCHARGE SUMMARY DATE OF ADMISSION: November 19, 2018. DATE OF DISCHARGE: November 20, 2018 FINAL DIAGNOSES: 1. Severe iron deficiency anemia, symptomatic. 2. Essential hypertension. 3. Hyperlipidemia. 4. Primary osteoarthritis. 5. Depression, not other specified. HOSPITAL COURSE: This patient presented with severe symptomatic anemia it was 8.4. Because of her symptoms, dizzy, lightheadedness, she was given a unit of blood. The patient wanted to have further workup as an outpatient. Patient had some small amount of rectal bleeding, which is felt to be probably from hemorrhoids. She has also had a GI workup that has been negative. She was seen by Dr. Mckeon from Oncology and it is his opinion that maybe patient has had small bowel AVMs. He is arranging for the patient to have an infusion as an outpatient. PHYSICAL EXAMINATION: VITAL SIGNS: Temperature 98, pulse 92, respiratory rate 18, blood pressure 146/79. LUNGS: Clear. CARDIOVASCULAR: 1st and 2nd sounds normal. INVESTIGATIONS: Hemoglobin 9.7. DISCHARGE MEDICATIONS: 1. Zestril 20 mg q.h.s. 2. Tylenol 650 mg q.6h p.r.n. 3. Vitamin C 1000 mg p.o. at bedtime. 4. Lipitor 20 mg q.h.s. 5. Lexapro 10 mg p.o. q.h.s. 6. Multivitamin 1 tablet p.o. q.h.s. FOLLOW UP: Dr. Mckeon on 12/09/2018, follow up with Dr. Patricia in 1 week. CBC in [address] Patricia. MMTOÑOL / IJN: [id number] /
[2018-11-22 13:56] LABS: Gamma Globulin 0.56 g/dL (0.70-1.50)
== END 2018-11-20 18:17 | disposition home health service (06) ==
LOC: EC 14:34 → 3NMEDONC 16:22
PROVIDERS: ADMIT Hospitalist; ATTEND Hospitalist
DX: D50.9 Iron deficiency anemia, unspecified (principal); K62.5 Hemorrhage of anus and rectum; E78.5 Hyperlipidemia, unspecified; F32.9 Major depressive disorder, single episode, unspecified; I10 Essential (primary) hypertension; K21.9 Gastro-esophageal reflux disease without esophagitis; M19.91 Primary osteoarthritis, unspecified site; N28.1 Cyst of kidney, acquired; M81.0 Age-related osteoporosis without current pathological fracture; Z79.899 Other long term (current) drug therapy; Z87.891 Personal history of nicotine dependence; Z98.51 Tubal ligation status; Z88.0 Allergy status to penicillin; Z88.2 Allergy status to sulfonamides
CPT/HCPCS: 36415; 80048; 80053; 82607; 82728; 82746; 82784; 83540; 83550; 83605; 83615; 83735; 83883; 83921; 84165; 85025; 85045; 85610; 86334; 86850; 86900; 86901; 86920; 93005; 99285